=== PATIENT | female | born 1940 | race Caucasian/White ===

== ENCOUNTER 2016-06-23 14:58 | Emergency (ER) | payer MEDICARE, OTHER ==
[~2016-06-23] VITALS: Ht 160 cm; Wt 75.0 kg
[~2016-06-23 14:58] MED LIST: ATEN50TA PO; MECL12.568 PO; NAPR-688 PO; ROSU5TAB5 PO
[2016-06-23 15:08] VITALS: Ht 160 cm; Wt 75.0 kg
[2016-06-23] MEDS ORDERED: DICL50TA11 PO (15:47)
[2016-06-23] MEDS ORDERED: MECL-77 PO (15:48)
[2016-06-23] MEDS ORDERED: ROSU20TA PO (15:49)
[2016-06-23] MEDS ORDERED: ESOM40CA PO (15:49)
[2016-06-23] MEDS ORDERED: SIME80TA PO (15:50)
[2016-06-23] MEDS ORDERED: LINA145C PO (15:55)
[2016-06-23] MEDS ORDERED: HYOS0.1212 SL (15:56)
[2016-06-23] MEDS ORDERED: MULT-853 PO (15:57)
[2016-06-23] MEDS ORDERED: CALC-1 PO (16:03)
[2016-06-23] MEDS ORDERED: CALCIUM 500MG PO (16:04)
--- NOTE | 2016-06-23 17:17 | RADRPT ---
PROCEDURE: CT of the neck CLINICAL INDICATION: Progressive dysphasia TECHNIQUE: Using a Xcalar light speed [address] scanner, multiple axial CT images of the neck were o btained from the skull base to the superior mediastinum without intravenous contrast. Coronal and s agittal reformatted images were provided. The [facility] The CTDI vol is 9.1 mGy and the DLP is 246.24 mGy-cm. COMPARISON: None FINDINGS: The bilateral parotid and submandibular glands are normal in size and attenuation. The oral tongue is not well visualized secondary to dental amalgam. The base of tongue and floor mouth are normal. The nasopharynx, oropharynx, hypopharynx, larynx, and trachea are normal. The thyroid gland is nor mal in size and attenuation. No abnormally enlarged lymph nodes in the cervical or submental chains are seen. The supraclavicular space is clear. No neck mass or fluid collection is seen. The super ior mediastinum and lung apices are within normal limits. The osseous structures demonstrate degene rative spondylosis of the cervical spine. A retention cyst is seen in the right maxillary sinus. Th e remaining visualized paranasal sinuses are well pneumatized. IMPRESSION: No acute pathology in the neck. RPTAT: HPNM Physician Maria M Date Time Electronically viewed and signed by Physician Maria M on 06/23/2016 17:16 /
--- NOTE | 2016-06-23 17:42 | ERD ---
ER Documentation Chief Complaint Date/Time DATE: 06/23/16 TIME: 17:39 Chief Complaint DIFFICULTY SWALLOWING. HPI 76-year-old female presents to the ER for a 40 year problem of feeling like there is something in her throat when she swallows. States that is gotten progressively worse and she decided to come get it checked out finally. She is still able to swallow both fluids and liquids but says that it is difficult. She has no focal weakness or any other symptoms. ROS All systems reviewed and are negative except as per history of present illness. Medications Home Meds Reported Medications [Calcium 500MG] No Conflict Check, 1 TAB PO DAILY 06/23/16 Multivits-Min/Iron/FA/Lutein (Centrum Silver Women Tablet) 1 Each Tablet, 1 EACH PO DAILY, TAB 06/23/16 Hyoscyamine Sulfate* (Hyoscyamine Sulfate*) 0.125 Mg Tab.subl, 0.125 MG SL Q4H, TAB 06/23/16 Linaclotide (LINZESS) 145 Mcg Capsule, 145 MCG PO DAILY, #30 CAP 06/23/16 Simethicone* (Anti-Gas/80*) 80 Mg Tab.chew, 80 MG PO Q6H Y for DISTENSION/GAS/ BLOATING, TAB.CHEW 06/23/16 Rosuvastatin Calcium* (Crestor*) 20 Mg Tablet, 20 MG PO QHS, #30 TAB 06/23/16 Esomeprazole Mag Trihydrate (Nexium) 40 Mg Capsule.dr, 40 MG PO DAILY, #30 CAP 06/23/16 Meclizine Hcl* (Meclizine Hcl*) 25 Mg Tablet, 25 MG PO DAILY Y for DIZZINESS, TAB 06/23/16 Diclofenac Sodium* (Diclofenac Sodium*) 50 Mg Tablet.dr, 50 MG PO DAILY, #60 TAB 06/23/16 Atenolol* (Atenolol*) 50 Mg Tablet, 50 MG PO QAM 06/21/11 Discontinued Reported Medications Calcium Carbonate/Vitamin D3 (Calcium 500+D Tablet Chew) 1 Each Tab.chew, 1 EACH PO DAILY, TAB.CHEW 06/23/16 Naproxen* (Naproxen*) 500 Mg Tablet, 500 MG PO Q12 Y 06/21/11 Meclizine Hcl (Meclizine Hcl) 12.5 Mg Tablet, 12.5 MG PO UNKNOWN DOSE BID PRN 06/21/11 Rosuvastatin Calcium* (Crestor*) 5 Mg Tablet, 5 MG PO UNKNOWN DOSE QHS 06/21/11 Allergies Allergies: Coded Allergies: acetaminophen (Verified Allergy, Unknown, HALLUCINATIONS, 06/23/16) hydrocodone (Verified Allergy, Unknown, HALLUCINATIONS, 06/23/16) PMhx/Soc History of Surgery: Yes (R shoulder fx, L TKR,R THR with revision,L THR, inguinal hernia repair) Anesthesia Reaction: Yes (NAUSEA) Hx Neurological Disorder: No Hx Respiratory Disorders: No Hx Cardiac Disorders: Yes (HTN,HIGH CHOLESTEROL) Hx Psychiatric Problems: No Hx Miscellaneous Medical Probl: Yes (Htn,stomach upset w/ indigestion, hyperlipidemia,depression,UTI,arthritis) Hx Alcohol Use: No Hx Substance Use: No Hx Tobacco Use: No Smoking Status: Never smoker Physical Exam Vitals Vital Signs Date Time Temp Pulse Resp B/P Pulse Ox O2 Delivery O2 Flow Rate FiO2 06/23/16 15:08 97.9 73 19 191/83 98 Physical Exam Const: [] No distress Head: Atraumatic Eyes: Normal Conjunctiva ENT: Normal External Ears, Nose and Mouth. Oropharynx patent within normal limits. Neck: Full range of motion.. Supple, no masses palpable Resp: Clear to auscultation bilaterally Cardio: Regular rate and rhythm, no murmurs Abd: Soft, non tender, non distended. Normal bowel sounds Skin: No petechiae or rashes Back: No midline or flank tenderness Ext: No cyanosis, or edema Neur: Awake and alert and oriented 3, cranial nerves II through XII intact, no cerebellar deficits, normal gait Psych: Normal Mood and Affect Procedures/MDM Chronic progressive dysphagia in a 68-year-old female. She is able to swallow her own secretions as well as solid and liquid. No current emergent risk. Able to swallow the emergency room peer CT soft tissue of neck reveals no abnormal masses or anatomy. At this point is appropriate for gastroenterology follow-up as an outpatient for further testing the functionality of her swallowing. Departure Diagnosis: Primary Impression: Dysphagia Condition: Stable Patient Instructions: Understanding Dysphagia Additional Instructions: Call your primary care doctor TOMORROW for an appointment during the next 1-2 days and to obtain a GASTROENTOLOGY consult for further evaluation of chronic dysphagia.See the doctor sooner or return here if your condition worsens before your appointment time. ELOISE ROWLAND DO Jun 23, 2016 17:42
[2016-06-23 18:15] VITALS: BP 170/68; PULSE 75; RESP 18
== END 2016-06-23 18:15 | disposition home or self-care (01) ==
LOC: E/R 14:58
DX: R13.10 Dysphagia, unspecified (principal); I10 Essential (primary) hypertension
CPT/HCPCS: 70490

== ENCOUNTER → 2016-06-28 | Outpatient (CLI) | payer MEDICARE, OTHER ==
[~2016-06-28] MED LIST changes: +CALCIUM 500MG PO; +DICL50TA11 PO; +ESOM40CA PO; +HYOS0.1212 SL; +LINA145C PO; +MECL-77 PO; -MECL12.568 PO; +MULT-853 PO; -NAPR-688 PO; +ROSU20TA PO; -ROSU5TAB5 PO; +SIME80TA PO
[2016-06-30 14:41] LABS: ANA SCREEN NEGATIVE (NEGATIVE)
== END | disposition home or self-care (01) ==
LOC: LAB 15:42
PROVIDERS: ATTEND Psychiatry & Neurology Neurology
DX: F02.81 Dementia in other diseases classified elsewhere, unspecified severity, with behavioral disturbance (principal); R40.4 Transient alteration of awareness
CPT/HCPCS: 82607; 86038; 86320; 86592

== ENCOUNTER → 2017-06-04 | Outpatient (CLI) | END | disposition home or self-care (01) ==

== ENCOUNTER 2017-07-07 12:26 | Emergency (ER) | END 2017-07-07 16:15 | disposition home or self-care (01) ==

== ENCOUNTER 2017-09-11 20:59 | Emergency (ER) | END 2017-09-11 23:18 | disposition home or self-care (01) ==

== ENCOUNTER 2017-10-02 16:24 | Inpatient (IN) | END 2017-10-12 15:20 | disposition home or self-care (01) | DRG 871 ==

== ENCOUNTER 2017-12-12 21:48 | Inpatient (IN) | END 2017-12-14 17:50 | disposition home health service (06) | DRG 101 ==